=== PATIENT | male | born 1990 | race African-American/Black ===

== ENCOUNTER 2016-08-09 16:29 | Emergency (ER) | payer SELFPAY | END 2016-08-09 17:15 | disposition home or self-care (01) | LOC: SED 16:29 | DX: S29.012A Strain of muscle and tendon of back wall of thorax, initial encounter (principal); S39.012A Strain of muscle, fascia and tendon of lower back, initial encounter; V43.92XA Unspecified car occupant injured in collision with other type car in traffic accident, initial encounter | CPT/HCPCS: 99283 ==